=== PATIENT | male | born 1975 | race Caucasian/White ===

== ENCOUNTER 2018-06-09 07:50 | Emergency (ER) | payer BC ==
[~2018-06-09] VITALS: Ht 167.6 cm; Wt 75.3 kg
[2018-06-09 08:09] VITALS: BP 145/73; Ht 167.6 cm; Wt 75.3 kg
== END 2018-06-09 10:23 | disposition home or self-care (01) ==
LOC: ED 07:50
DX: S93.402A Sprain of unspecified ligament of left ankle, initial encounter (principal); Z88.0 Allergy status to penicillin; X58.XXXA Exposure to other specified factors, initial encounter; Y93.89 Activity, other specified; Y92.89 Other specified places as the place of occurrence of the external cause; Y99.8 Other external cause status